=== PATIENT | female | born 1990 | race Caucasian/White ===

== ENCOUNTER 2018-10-16 15:46 | Inpatient (IN) ==
[2018-10-16] MEDS ORDERED: ONDANSETRON 4 MG TAB.RAPDIS PO PRN (15:58)
[2018-10-16] MEDS ORDERED: RINGER'S SOLUTION,LACTATED 1,000 ML IV PRN (15:58)
[2018-10-16] MEDS ORDERED: RINGER'S SOLUTION,LACTATED 1,000 ML IV ONE (15:58)
[2018-10-16] MEDS ORDERED: OXYTOCIN/DEXTROSE 5%-WATER 30 UNITS/500 ML BAG IV ONE ×2 (15:58→23:56)
[2018-10-16] MEDS ORDERED: LIDOCAINE HCL 50 ML VIAL PERI PRN (15:58)
[2018-10-16] MEDS ORDERED: NALBUPHINE HCL 10 MG/ML AMPUL IV PRN ×2 (15:58)
[2018-10-16 16:13] LABS: Hematocrit 37.2 % (37.0-47.0); Hemoglobin 12.5 gm/dL (12.5-16.0); Mean Corpuscular Hemoglobin 28.2 pg (27-31); Mean Corpuscular Hgb Conc 33.6 g/dl (32-36); Neutrophil # 10.8 K/mm3 (1.3-6.0); Neutrophil % 68.9 % (42-75.0); Platelet Count 250 K/mm3 (150-450); Red Blood Count 4.43 M/mm3 (4.2-5.4); Red Cell Distribution Width 14.8 % (11.5-14.0); White Blood Count 15.7 K/mm3 (4.0-10.5)
--- NOTE | 2018-10-16 16:42 | HP ---
Chief Complaint - Chief Complaint Date of Service: 10/16/18 Time of Service: 16:36 Chief Complaint: Induction of labor History of Present Illness: 28 year old at 40w 2d who presented to the office today for a routine visit and was found to have elevated blood pressure in the mild range. She denies headache, visual changes or abdominal pain. She denies ctx, vb or lof. Fetus is active. Medical History (Updated 10/16/18 @ 15:36 by Dhara Jama MD) Tobacco abuse (Chronic) Heart burn Onset Date: ~01/2018 w/ Abnormal Pap smear of cervix Onset Date: ~03/2012 LGSIL, HSIL, HPV-05/2016 Peptic ulcer Onset Date: Unknown Tobacco dependence Onset Date: 12/18/13 Marijuana abuse Onset Date: 12/18/13 PCB (post coital bleeding) Onset Date: 01/13/15 Pelvic pain Onset Date: 01/13/15 Spontaneous Onset Date: ~2007 x2-2008 & 2010 Metrorrhagia Onset Date: 01/13/15 Surgical History: Surgical History (Updated 03/27/18 @ 09:44 by Precious Chappell, JESSENIA) History of colposcopy Onset Date: ~05/2016 History of nasal surgery broken nose, broken left eye orbit History of oral surgery Onset Date: 10/31/13 5 teeth extracted Status post dilation and curettage Onset Date: ~2007 missed ab Family History: Family History (Updated 02/24/18 @ 13:34 by Sri Stoll, JESSENIA) Mother Diabetes Hypertension Epilepsy Father Depression Alcohol abuse Grandfather Cancer Lung Grandmother Diabetes Grandmother CVA (cerebral vascular accident) Grandfather Myocardial infarction Aunt Diabetes Social History: (Last Reviewed 10/16/18 @ 16:30 by Dhara Jama MD) Social History: adopted: No group home: No Marital status: lives independently: Yes household members: significant other, children number of children: 1 current occupational status: employed current occupation: [employer] Highest education level completed: some college, no degree Service: No Tobacco: Smoking Status: Current every day smoker tobacco type: cigarettes Smoking cigarettes per day: 10.0 Smoking packs per day: 0.5 Tobacco: How many years used: 10 Alcohol: alcohol intake: former details: quit when got +UPT but otherwise was drinking a beer/day Substance Use: substance use type: former substance user, marijuana Dietary Habits: caffeine: Yes Type: carbonated beverages, coffee Exercise: frequency: other Personal Safety: do you feel safe at home: Yes victim of physical abuse: No victim of emotional abuse: No victim of sexual abuse: No Review Of Systems (GEN) - Review of Systems Generalized/Overall Review: Present: No Symptoms Reported Misc: All systems neg except as marked Allergies/Adverse Reactions: Allergies Allergy/AdvReac Type Severity Reaction Status Date / Time adhesive tape Allergy Rash Verified 10/16/18 14:38 diphenhydramine HCl Allergy Hives Verified 10/16/18 14:38 [From Benadryl] Home Medications: HOME MEDICATIONS Vits96/Iron Fum/Folic [ S] 1 tab PO DAILY 10/16/18 [Last Taken Unknown] Exam - Exam Vital Signs: Vital Signs - Last Taken Temp 37.1 C 10/16/18 16:10 Pulse 94 10/16/18 16:10 Resp 16 10/16/18 16:10 BP 130/83 10/16/18 16:10 Pulse Ox 97 10/16/18 16:10 Constitutional: Present: Alert, Oriented x3, Cooperative, No distress Respiratory: Present: lungs clear, normal breath sounds Cardiovascular/Chest: Present: regular rate, rhythm, no murmur Abdomen: Present: soft, nontender, nondistended Extremity: Present: non-tender, no calf tenderness Skin Exam: Present: normal color, warm/dry, no cyanosis Appearance: Present: appropriate appearance Eye contact: Present: cooperative Thoughts: Present: normal thought pattern Diagnostic Studies: Abnormal Lab Results 10/16/18 Range/Units 16:10 WBC 15.7 H (4.0-10.5) K/mm3 RDW 14.8 H (11.5-14.0) % Immature Gran % (Auto) 0.70 H (0.001-0.429) % Immature Gran # (Auto) 0.11 H (0.000-0.0310) K/mm3 Neutrophils # 10.8 H (1.3-6.0) K/mm3 Lymphocytes # 3.79 H (1.5-3.5) k/mm3 Laboratory Results WBC 15.7 K/mm3 (4.0-10.5) H 10/16/18 16:10 RBC 4.43 M/mm3 (4.2-5.4) 10/16/18 16:10 Hgb 12.5 gm/dL (12.5-16.0) 10/16/18 16:10 Hct 37.2 % (37.0-47.0) 10/16/18 16:10 MCV 84.0 fl (78-100) 10/16/18 16:10 MCH 28.2 pg (27-31) 10/16/18 16:10 MCHC 33.6 g/dl (32-36) 10/16/18 16:10 RDW 14.8 % (11.5-14.0) H 10/16/18 16:10 Plt Count 250 K/mm3 (150-450) 10/16/18 16:10 MPV 11.0 fl (8-12.5) 10/16/18 16:10 Immature Gran % (Auto) 0.70 % (0.001-0.429) H 10/16/18 16:10 Immature Gran # (Auto) 0.11 K/mm3 (0.000-0.0310) H 10/16/18 16:10 68.9 % (42-75.0) 10/16/18 16:10 24.1 % (20-51) 10/16/18 16:10 5.0 % (0.0-9) 10/16/18 16:10 1.0 % (0.0-3.0) 10/16/18 16:10 0.3 % (0.0-1.0) 10/16/18 16:10 Nucleated RBC % 0.0 k/mm3 (0-1) 10/16/18 16:10 10.8 K/mm3 (1.3-6.0) H 10/16/18 16:10 3.79 k/mm3 (1.5-3.5) H 10/16/18 16:10 0.8 k/mm3 (0.0-1.0) 10/16/18 16:10 0.2 k/mm3 (0.0-0.7) 10/16/18 16:10 Absolute Basophils 0.1 k/mm3 (0.0-0.1) 10/16/18 16:10 Assessment/Plan - Narrative Narrative: 28 year old @ 40w 2d 1. Medical IOL due to post due date and GHTN, possible pre-eclampsia. Pre- eclampsia labs pending and UP:CR pending as well. Start Pitocin. 2. GBS negative: prophylaxis not indicated
[2018-10-16 16:44] LABS: Random Urine Total Protein 15.6 mg/dL (0-12)
[2018-10-16 16:48] LABS: Albumin * 2.5 gm/dl (3.4-5.0); Anion Gap 18.2 mmol/L (6.8-13.8); BUN/Creatinine Ratio 9.8 (9.0-21.6); Bilirubin, Total 0.3 mg/dL (0.0-1.1); Ca. Corrected For Albumin 9.3 mg/dL (8.4-10.2); Calcium * 8.4 mg/dL (7.9-10.9); Carbon Dioxide 18.1 mmol/L (24-32.6); Potassium 4.3 mmol/L (3.4-4.6); Total Protein 6.1 gm/dL (6.2-8.2)
[2018-10-16 16:52] LABS: Cocaine Ur Negative (NEGATIVE); Urine Barbiturate Negative (NEGATIVE); Urine Benzodiazepines Negative (NEGATIVE); Urine Opiates Negative (NEGATIVE); Urine PCP Negative (NEGATIVE); Urine THC Negative (NEGATIVE)
--- NOTE | 2018-10-16 17:03 | PN ---
Progess Note - Interim Date: 10/16/18 Time: 17:02 Narrative: 10/16/18 17:02 The patient is comfortable without epidural cvx /-2 AROM for a small amount of clear fluid FHT is cat 1 No contractions as pitocin has not been started yet Pre-eclampsia labs normal, UP:CR consistent with GHTN
[2018-10-16] MEDS ORDERED: ONDANSETRON HCL/PF 2 MG/ML VIAL IV PRN (18:10)
[2018-10-16] MEDS ORDERED: BUPIVACAINE HCL/0.9 % NACL/PF 250 ML EP PRN (18:10)
[2018-10-16] MEDS ORDERED: NALOXONE HCL 1 MG/1 ML SYRG IV PRN (18:10)
[2018-10-16] MEDS ORDERED: BUPIVACAINE HCL/PF 30 ML VIAL EP SCH (18:15)
--- NOTE | 2018-10-16 18:27 | ANES ---
Anesthesia Pre Procedure Eval Vitals/Labs: Last Vital Signs Temp 37.1 C 10/16/18 16:10 Pulse 94 10/16/18 16:10 Resp 16 10/16/18 16:10 BP 130/83 10/16/18 16:10 Pulse Ox 97 10/16/18 16:10 HOME MEDICATIONS Vits96/Iron Fum/Folic [ S] 1 tab PO DAILY 10/16/18 [Last Taken Unknown] Allergies/Adverse Reactions: Allergies Allergy/AdvReac Type Severity Reaction Status Date / Time adhesive tape Allergy Rash Verified 10/16/18 14:38 diphenhydramine HCl Allergy Hives Verified 10/16/18 14:38 [From Benadryl] - Planned Procedure Planned Procedure: INDUCTION Medication List Reviewed:: Yes Allergies Verified: Yes Medical History (Updated 10/16/18 @ 16:41 by Dhara Jama MD) Tobacco abuse (Chronic) Heart burn Onset Date: ~01/2018 w/ Abnormal Pap smear of cervix Onset Date: ~03/2012 LGSIL, HSIL, HPV-05/2016 Peptic ulcer Onset Date: Unknown Tobacco dependence Onset Date: 12/18/13 Marijuana abuse Onset Date: 12/18/13 PCB (post coital bleeding) Onset Date: 01/13/15 Pelvic pain Onset Date: 01/13/15 Spontaneous Onset Date: ~2007 x2-2007 & 2010 Metrorrhagia Onset Date: 01/13/15 Surgical History (Updated 10/16/18 @ 16:41 by Dhara Jama MD) History of colposcopy Onset Date: ~05/2016 History of nasal surgery broken nose, broken left eye orbit History of oral surgery Onset Date: 10/31/13 5 teeth extracted Status post dilation and curettage Onset Date: ~2007 missed ab Family History (Updated 02/24/18 @ 13:34 by Sri Stoll RN) Mother Diabetes Hypertension Epilepsy Father Depression Alcohol abuse Grandfather Cancer Lung Grandmother Diabetes Grandmother CVA (cerebral vascular accident) Grandfather Myocardial infarction Aunt Diabetes - Cardiovascular Tolerate Activity: Good Heart Sounds: S1 & S2, Regular - Anesthesia Assessment and Plan ASA Class: PS, II Anesthesia Type Plan: Epidural
--- NOTE | 2018-10-16 18:45 | ANES ---
Anesthesia Procedure Note Procedure Note: ANESTHESIA PROCEDURE NOTE Date of Procedure: 10/16/2018. Time of procedure: 1824. Performed by: Karson Barboza CRNA Front Desk Lead: None. Preprocedure diagnosis: Active labor. Post procedure diagnosis: Same. Procedure: Insertion of labor epidural. Indications: The patient is a 28-year-old female in active labor requesting labor epidural for pain management. Findings: See below. Details of the procedure: The patient was placed in a sitting position. DuraPrep as well as Betadine swabs X3 was applied to the patient's back. Patient was then draped in a sterile fashion. Lidocaine 1% was infiltrated to the skin and subcutaneous tissues at the level of the L3-4 interspace. The epidural space was identified using a 18-gauge Tuohy needle with [id number] technique. Epidural catheter was inserted to a depth of 10 centimeters at skin. Negative test dose was elicited using 3 mL of 1.5% preservative-free lidocaine plus epinephrine 1 200,000. The epidural catheter was then taped and secured in place. A loading dose of 8 mL of 0.25% preservative-free bupivacaine was administered to the epidural catheter after negative aspiration for blood and CSF. EBL: Minimal. Fluids: N/A. Specimen: N/A. Post procedure condition: The patient tolerated the procedure well. No complications were noted. Thank you for this consultation. Karson Barboza CRNA
--- NOTE | 2018-10-16 18:45 | ANES ---
Post Anesthesia Assessment - Vital Signs Vitals: Last Vital Signs Temp 37.1 C 10/16/18 16:10 Pulse 94 10/16/18 16:10 Resp 16 10/16/18 16:10 BP 130/83 10/16/18 16:10 Pulse Ox 97 10/16/18 16:10 Airway Patency: Normal - Mental Status Level Of Consciousness: Awake - N/V Assessment Nausea/Vomiting Presence: None Dehydration:: No
[2018-10-16] MEDS ORDERED: BENZOCAINE/MENTHOL 81 SPRAY CAN TP PRN (23:56)
[2018-10-16] MEDS ORDERED: SENNOSIDES 8.6 MG TABLET PO PRN (23:56)
[2018-10-16] MEDS ORDERED: diphenhydrAMINE HCL 25 MG CAPSULE PO PRN (23:56)
[2018-10-16] MEDS ORDERED: HYDROCORTISONE 30 APPL TUBE TP PRN (23:56)
[2018-10-16] MEDS ORDERED: oxyCODONE HCL/ACETAMINOPHEN 1 TAB TABLET PO PRN ×2 (23:56)
[2018-10-16] MEDS ORDERED: BISACODYL 10 MG SUPP.RECT RC PRN (23:56)
[2018-10-16] MEDS ORDERED: GLYCERIN/WITCH HAZEL LEAF 40 APPL BOX TP PRN (23:56)
--- NOTE | 2018-10-16 23:56 | OR ---
Operative Report - Dictated Report Narrative: Date of delivery: 10/16/2018 Time of delivery: 2336 Gender: male weight: 3161 grams APGARS: 11/06 Procedure: Description of the procedure: The patient is a 28 year old at 40w 2d who underwent an induction for post due date and GHTN. She received Pitocin and AROM and progressed to complete dilation. She delivered a viable male infant in ALEXA presentation. The cord was clamped and cut and the was placed on the maternal abdomen. The placenta was delivered by expression and appeared intact. There were no lacerations. EBL: 100 mL Lacerations: none Complications: none Specimen: placenta History for Definition: * The number of deliveries resulting in a live the patient experienced prior to current hospitalization * The previous delivery of live twins or any live multiple gestation is consi dered one live event. *If primagravida or nulliparous is documented select zero for the number of previous live births. Live Events: 1
[2018-10-17] MEDS: IBUPROFEN 800 MG TABLET PO PRN ×2 (08:51→15:06)
[2018-10-17] MEDS: PRENATAL VITS96/IRON FUM/FOLIC 1 TAB TABLET PO SCH (08:51)
[2018-10-17] MEDS: DOCUSATE SODIUM 100 MG CAPSULE PO SCH ×2 (08:51→20:01)
--- NOTE | 2018-10-18 07:54 | PN ---
Subjective - Date and Time Seen Date: 10/18/18 Time: 07:53 Subjective Narrative: Patient without complaints Objective Objective Narrative: See vital signs - Review of Systems Generalized/Overall Review: Reports: No Symptoms Reported Misc: All systems neg except as marked - Vitals Vitals: Last Vital Signs Temp 36.0 C 10/18/18 00:10 Pulse 75 10/18/18 00:10 Resp 18 10/18/18 00:10 BP 122/69 10/18/18 00:10 Pulse Ox 97 10/18/18 00:10 - Exam Constitutional: Present: Alert, Oriented x3, Cooperative, No distress Abdomen: Present: soft, nontender, nondistended Extremity: Present: non-tender, no calf tenderness Skin Exam: Present: normal color, warm/dry, no cyanosis Appearance: Present: appropriate appearance Eye contact: Present: cooperative Thoughts: Present: normal thought pattern Cauti Physician Documentation - Urinary Catheter Management Urethral (Sena) Urethral Indwelling: No Date of Insertion: 10/16/18 Time of Insertion: 19:00 Assessment/Plan Plan Narrative: PPD 2 s/p Doing well Discharge tomorrow
--- NOTE | 2018-10-18 07:55 | PN ---
Subjective - Date and Time Seen Date: 10/17/18 Time: 09:00 Subjective Narrative: Patient without complaints Objective Objective Narrative: See vital signs - Review of Systems Generalized/Overall Review: Reports: No Symptoms Reported Misc: All systems neg except as marked - Vitals Vitals: Last Vital Signs Temp 36.0 C 10/18/18 00:10 Pulse 75 10/18/18 00:10 Resp 18 10/18/18 00:10 BP 122/69 10/18/18 00:10 Pulse Ox 97 10/18/18 00:10 - Exam Constitutional: Present: Alert, Oriented x3, Cooperative, No distress Abdomen: Present: soft, nontender, nondistended Extremity: Present: non-tender, no calf tenderness Skin Exam: Present: normal color, warm/dry, no cyanosis Appearance: Present: appropriate appearance Eye contact: Present: cooperative Thoughts: Present: normal thought pattern Cauti Physician Documentation - Urinary Catheter Management Urethral (Sena) Urethral Indwelling: No Date of Insertion: 10/16/18 Time of Insertion: 19:00 Assessment/Plan Plan Narrative: PPD 1 s/p Doing well Discharge tomorrow
[2018-10-18] MEDS: DOCUSATE SODIUM 100 MG CAPSULE PO SCH ×2 (10:23→20:38)
[2018-10-18] MEDS: PRENATAL VITS96/IRON FUM/FOLIC 1 TAB TABLET PO SCH (10:23)
[2018-10-18] MEDS: IBUPROFEN 800 MG TABLET PO PRN ×2 (14:37→23:13)
[2018-10-18 19:22] VITALS: BP 129/69
== END 2018-10-18 23:50 | disposition home or self-care (01) | DRG 806 ==
LOC: OB 15:46 → MS 10-18 14:52
PROVIDERS: ADMIT Obstetrics & Gynecology; ATTEND Obstetrics & Gynecology
CPT/HCPCS: 36415; 59025; 80053; 80307; 82570; 84155; 84156; 85025; 86850; 88307